=== PATIENT | male | born 1960 | race Caucasian/White ===

== ENCOUNTER 2018-11-22 15:36 | Outpatient (REF) | payer MEDICAID, SELFPAY ==
[2018-11-22 22:46] LABS: Abs Immature Grans 0.03 k/cumm (0.0-0.09); Absolute Basophil Count 0.03 k/cumm (0.0-0.2); Absolute Eosinophil Count 0.18 k/cumm (0.0-0.7); Absolute Lymphocyte Count 2.21 k/cumm (1.2-3.4); Absolute Neutrophil Count 6.08 k/cumm (1.2-6.7); Basophils % 0.3; Eosinophils % 1.9; HCT 46.8 % (40.0-50.0); HGB 15.9 g/dL (13.5-17.5); Immature Grans % 0.3; Lymphocytes % 23.7; Mean Corpuscular Hemoglobin 31.1 pg (27.0-33.0); Mean Corpuscular Volume 91.4 fL (80-95); Mean Platelet Volume 11.6 fL (8.0-11.0); Monocytes % 8.6; Neutrophils % 65.2; Platelet Count 175 x1000/uL (130-400); RBC 5.12 m/cumm (4.50-6.00); RBC Distribution Width 12.4 % (11.8-14.1); White Blood Cell Count 9.33 k/cumm (4.4-10.8)
[2018-11-23 00:03] LABS: ALT 89 U/L (12-78); AST 31 U/L (15-37); Albumin 3.9 g/dL (3.4-5.0); Alkaline Phosphatase 171 U/L (46-116); Anion Gap 10.1 mmol/L (3-11); BUN 22 mg/dL (7-18); Bilirubin, Total 0.4 mg/dL (0.2-1.0); CO2 27.9 mmol/L (21.0-32.0); CREATININE 1.39 mg/dL (0.70-1.30); Calcium 9.5 mg/dL (8.5-10.1); Chloride 103 mmol/L (98-107); Estimated GFR 52.12 (mL/min/1.73m2); Glucose 102 mg/dL (70-100); Potassium 4.5 mmol/L (3.5-5.1); Sodium 141 mmol/L (136-145); TSH (W/Ref FT4) 1.54 uIU/mL (0.358-3.74); Total Protein 7.1 g/dL (6.4-8.2)
== END 2018-11-22 15:56 ==
LOC: NCHCN 15:36
PROVIDERS: PCP Nurse Practitioner Family; Visit Provider Family Medicine
DX: R53.83 Other fatigue (principal); I25.10 Atherosclerotic heart disease of native coronary artery without angina pectoris
CPT/HCPCS: 80053; 84443; 85025

== ENCOUNTER 2019-01-05 21:13 | Outpatient (REF) | payer MEDICAID, SELFPAY ==
[2019-01-05 22:27] LABS: ALT 82 U/L (12-78); AST 35 U/L (15-37); Albumin 3.7 g/dL (3.4-5.0); Alkaline Phosphatase 156 U/L (46-116); Bilirubin, Direct 0.15 mg/dL (0.00-0.20); Bilirubin, Total 0.5 mg/dL (0.2-1.0); Total Protein 6.8 g/dL (6.4-8.2)
== END 2019-01-05 21:33 ==
LOC: NCHCN 21:13
PROVIDERS: PCP Nurse Practitioner Family; Visit Provider Family Medicine
DX: I10 Essential (primary) hypertension (principal)
CPT/HCPCS: 80076

== ENCOUNTER 2019-02-22 16:46 | Outpatient (REF) | payer MEDICAID, SELFPAY ==
[2019-02-22 20:59] LABS: ALT 110 U/L (12-78); AST 32 U/L (15-37); Albumin 3.9 g/dL (3.4-5.0); Alkaline Phosphatase 161 U/L (46-116); Bilirubin, Total 0.5 mg/dL (0.2-1.0)
[2019-02-22 21:19] LABS: Bilirubin, Direct 0.14 mg/dL (0.00-0.20)
== END 2019-02-22 17:06 ==
LOC: NCHCN 16:46
PROVIDERS: PCP Nurse Practitioner Family; Visit Provider Registered Nurse
DX: G89.29 Other chronic pain (principal); M48.061 Spinal stenosis, lumbar region without neurogenic claudication
CPT/HCPCS: 80076

== ENCOUNTER 2019-04-13 09:25 | Outpatient (REF) | payer MEDICAID, SELFPAY ==
[2019-04-13 22:17] LABS: ALT 82 U/L (12-78); AST 29 U/L (15-37); Albumin 4.1 g/dL (3.4-5.0); Alkaline Phosphatase 127 U/L (46-116); Bilirubin, Direct 0.13 mg/dL (0.00-0.20); Bilirubin, Total 0.5 mg/dL (0.2-1.0); Total Protein 7.5 g/dL (6.4-8.2)
== END 2019-04-13 09:45 ==
LOC: NCHCN 09:25
PROVIDERS: PCP Nurse Practitioner Family; Visit Provider Registered Nurse
DX: I25.10 Atherosclerotic heart disease of native coronary artery without angina pectoris (principal)
CPT/HCPCS: 80076

== ENCOUNTER 2019-04-26 10:17 | Outpatient (REF) | payer MEDICAID, SELFPAY ==
[2019-04-26 22:17] LABS: Alkaline Phosphatase 118 U/L (46-116); GGT 66 U/L (15-85)
== END 2019-04-26 10:37 ==
LOC: NCHCN 10:17
PROVIDERS: PCP Nurse Practitioner Family; Visit Provider Registered Nurse
DX: R74.0 Nonspecific elevation of levels of transaminase and lactic acid dehydrogenase [LDH] (principal)
CPT/HCPCS: 82977; 84075

== ENCOUNTER 2019-05-17 07:57 | Outpatient (REF) | payer MEDICAID, SELFPAY ==
[2019-05-19 11:22] LABS: PSA, Screening 0.6 ng/ml (0-4.5)
== END 2019-05-17 08:17 ==
LOC: NCHCN 07:57
PROVIDERS: PCP Nurse Practitioner Family; Visit Provider Registered Nurse
DX: Z12.5 Encounter for screening for malignant neoplasm of prostate (principal)
CPT/HCPCS: 84153

== ENCOUNTER 2019-12-21 22:23 | Outpatient (REF) | payer MEDICAID, SELFPAY ==
[2019-12-21 22:53] LABS: Ferritin 258 ng/mL (26-388)
== END 2019-12-21 22:43 ==
LOC: NCHCN 22:23
PROVIDERS: PCP Nurse Practitioner Family; Visit Provider Nurse Practitioner
DX: M25.50 Pain in unspecified joint (principal)
CPT/HCPCS: 82728

== ENCOUNTER 2020-11-21 19:09 | Outpatient (REF) | payer MEDICAID, SELFPAY ==
[2020-11-21 22:05] LABS: Abs Immature Grans 0.02 10^3/uL (0.0-0.06); Absolute Basophil Count 0.06 10^3/uL (0.0-0.2); Absolute Eosinophil Count 0.27 10^3/uL (0.0-0.7); Absolute Lymphocyte Count 2.04 10^3/uL (1.2-3.4); Absolute Monocyte Count 0.79 10^3/uL (0.1-0.8); Absolute Neutrophil Count 4.29 10^3/uL (1.2-6.7); Basophils % 0.8; Eosinophils % 3.6; HCT 45.4 % (40.0-50.0); HGB 15.3 g/dL (13.5-17.5); Immature Grans % 0.3; Lymphocytes % 27.3; MCH 30.5 pg (27.0-33.0); MCHC 33.7 % (32.0-36.0); MCV 90.6 fL (80-95); MPV 10.7 fL (8.0-11.0); Monocytes % 10.6; Neutrophils % 57.4; Nucleated RBC 0 %; Platelet Count 268 10^3/uL (130-400); RBC 5.01 10^6/uL (4.36-5.78); RDW 11.8 % (11.8-14.1); RDW-SD 38.9 fL; WBC 7.47 10^3/uL (4.4-10.8)
[2020-11-21 22:37] LABS: ALT 80 U/L (16-63); AST 28 U/L (15-37); Albumin 3.9 g/dL (3.4-5.0); Alkaline Phosphatase 149 U/L (46-116); Anion Gap 6.5 mmol/L (3-11); BUN 18 mg/dL (7-18); Bilirubin, Total 0.4 mg/dL (0.2-1.0); CO2 28.5 mmol/L (21.0-32.0); Calcium 8.8 mg/dL (8.5-10.1); Chloride 104 mmol/L (98-107); Estimated GFR 55.94 (mL/min/1.73m2); Glucose 101 mg/dL (74-106); Potassium 4.6 mmol/L (3.5-5.1); Sodium 139 mmol/L (136-145); Total Protein 7.5 g/dL (6.4-8.2)
[2020-11-21 23:10] LABS: Bacteria Negative HPF (Negative); C & S Indicated? No; Casts Negative LPF (Negative); Crystals Negative HPF (Negative); Epithelial Cells Rare HPF (Negative); Mucus Negative (Negative); Other Cells Negative (Negative); RBC 0-2 HPF (0-2); WBC 0-2 HPF (0-5)
== END 2020-11-21 19:29 ==
LOC: NCHCN 19:09
PROVIDERS: PCP Nurse Practitioner Family; Visit Provider Registered Nurse
DX: R10.9 Unspecified abdominal pain (principal); K59.00 Constipation, unspecified
CPT/HCPCS: 80053; 81015; 85025

== ENCOUNTER 2021-03-29 09:21 | Outpatient (REF) | payer MEDICAID, SELFPAY ==
[2021-03-29 14:37] LABS: ALT 76 U/L (16-63); AST 33 U/L (15-37)
[2021-03-29 21:34] LABS: PSA, Screening 2.1 ng/mL (0.0-4.5)
== END 2021-03-29 09:22 | disposition home or self-care (01) ==
LOC: NCHCN 09:21
PROVIDERS: PCP Nurse Practitioner Family; Visit Provider Registered Nurse
DX: R74.01 Elevation of levels of liver transaminase levels (principal); I71.4 Abdominal aortic aneurysm, without rupture; Z12.5 Encounter for screening for malignant neoplasm of prostate
CPT/HCPCS: 84153; 84450; 84460

== ENCOUNTER 2022-02-14 14:35 | Outpatient (REF) | payer MEDICAID, SELFPAY ==
[2022-02-14 16:27] LABS: ALT 51 U/L (16-63); AST 27 U/L (15-37); Albumin 3.8 g/dL (3.4-5.0); Alkaline Phosphatase 186 U/L (46-116); Anion Gap 10.9 mmol/L (3-11); BUN 16 mg/dL (7-18); Bilirubin, Total 0.7 mg/dL (0.2-1.0); CO2 23.1 mmol/L (21.0-32.0); CREATININE 1.3 mg/dL (0.70-1.30); Calcium 8.8 mg/dL (8.5-10.1); Chloride 105 mmol/L (98-107); Estimated GFR 55.75 (mL/min/1.73m2); Glucose 206 mg/dL (74-106); Potassium 4.7 mmol/L (3.5-5.1); Sodium 139 mmol/L (136-145); Total Protein 6.9 g/dL (6.4-8.2)
== END 2022-02-14 14:36 | disposition home or self-care (01) ==
LOC: NCHCN 14:35
PROVIDERS: PCP Nurse Practitioner Family; Visit Provider Registered Nurse
DX: I10 Essential (primary) hypertension (principal); R94.5 Abnormal results of liver function studies
CPT/HCPCS: 80053

== ENCOUNTER 2022-07-30 21:07 | Outpatient (REF) | payer MEDICAID, SELFPAY ==
[2022-07-30 21:09] LABS: Hemoglobin A1C 7.1 % (<5.7)
[2022-07-30 21:14] LABS: Anion Gap 9.3 mmol/L (3-11); BUN 30 mg/dL (7-18); CO2 24.7 mmol/L (21.0-32.0); CREATININE 1.5 mg/dL (0.70-1.30); Calcium 8.8 mg/dL (8.5-10.1); Chloride 102 mmol/L (98-107); Estimated GFR 51.99 (mL/min/1.73m2); Glucose 113 mg/dL (74-106); Potassium 4.5 mmol/L (3.5-5.1); Sodium 136 mmol/L (136-145)
[2022-07-31 18:21] LABS: Albumin ug/mg Crea 7 (<30); Albumin, Ur 1.9 mg/dL (See Note); Creatinine, Ur 267.4 mg/dL (See Note)
== END 2022-07-30 21:08 | disposition home or self-care (01) ==
LOC: NCHCN 21:07
PROVIDERS: PCP Nurse Practitioner Family; Visit Provider Registered Nurse
DX: I10 Essential (primary) hypertension (principal); E11.9 Type 2 diabetes mellitus without complications; N18.30 Chronic kidney disease, stage 3 unspecified
CPT/HCPCS: 80048; 82043; 82570; 83036

== ENCOUNTER 2023-04-08 16:08 | Outpatient (REF) | payer MEDICAID, SELFPAY ==
[2023-04-08 21:11] LABS: Anion Gap 9.9 mmol/L (3-11); BUN 28 mg/dL (7-18); CO2 24.1 mmol/L (21.0-32.0); CREATININE 1.3 mg/dL (0.70-1.30); Calcium 9.5 mg/dL (8.5-10.1); Chloride 105 mmol/L (98-107); Estimated GFR 61.35 (mL/min/1.73m2); Glucose 146 mg/dL (74-106); Potassium 4.3 mmol/L (3.5-5.1); Sodium 139 mmol/L (136-145)
== END 2023-04-08 16:09 | disposition home or self-care (01) ==
LOC: NCHCN 16:08
PROVIDERS: PCP Nurse Practitioner Family; Visit Provider Registered Nurse
DX: N18.30 Chronic kidney disease, stage 3 unspecified (principal)
CPT/HCPCS: 80048

== ENCOUNTER 2023-07-02 09:53 | Outpatient (REF) | payer MEDICAID, SELFPAY ==
[2023-07-02 15:14] LABS: COMMENT (LAB VIEW ONLY) 248.97 mg/dL; Microalb ug/mg Crea 8.5 ug/mg Cr
== END 2023-07-02 09:54 | disposition home or self-care (01) ==
LOC: NCHCN 09:53
PROVIDERS: PCP Nurse Practitioner Family; Visit Provider Registered Nurse
DX: E11.9 Type 2 diabetes mellitus without complications (principal)
CPT/HCPCS: 82043; 82570

== ENCOUNTER 2024-01-14 11:57 | Outpatient (REF) | payer MEDICARE, MEDICAID, SELFPAY ==
[2024-01-14 14:34] LABS: ALT 67 U/L (16-63); AST 28 U/L (15-37); Albumin 3.8 g/dL (3.4-5.0); Alkaline Phosphatase 165 U/L (46-116); Anion Gap 6.5 mmol/L (3-11); BUN 21 mg/dL (7-18); Bilirubin, Total 0.6 mg/dL (0.2-1.0); CO2 26.5 mmol/L (21.0-32.0); CREATININE 1.4 mg/dL (0.70-1.30); Calculated LDL 63 mg/dL (<100); Chloride 105 mmol/L (98-107); Cholesterol 121 mg/dL (<200); Estimated GFR 55.78 (mL/min/1.73m2); Glucose 221 mg/dL (74-106); HDL Cholesterol 39 mg/dL (40-60); Potassium 4.9 mmol/L (3.5-5.1); Sodium 138 mmol/L (136-145); Total Protein 6.9 g/dL (6.4-8.2); Triglyceride 97 mg/dL (<150)
[2024-01-14 14:40] LABS: Hemoglobin A1C 7.4 % (<5.7)
== END 2024-01-14 11:58 | disposition home or self-care (01) ==
LOC: NCHCN 11:57
PROVIDERS: PCP Nurse Practitioner Family; Referring Provider Nurse Practitioner Family; Visit Provider Nurse Practitioner Family
DX: I10 Essential (primary) hypertension (principal); E11.9 Type 2 diabetes mellitus without complications; E78.5 Hyperlipidemia, unspecified
CPT/HCPCS: 80053; 80061; 83036

== ENCOUNTER 2024-06-27 22:18 | Outpatient (REF) | payer MEDICARE, MEDICAID, SELFPAY ==
[2024-06-27 16:21] LABS: COMMENT (LAB VIEW ONLY) 67.53 mg/dL
== END 2024-06-27 22:19 | disposition home or self-care (01) ==
LOC: NCHCN 22:18
PROVIDERS: PCP Nurse Practitioner Family; Visit Provider Nurse Practitioner Family
DX: E11.9 Type 2 diabetes mellitus without complications (principal)
CPT/HCPCS: 82043; 82570

== ENCOUNTER 2024-12-06 13:22 | Outpatient (REF) | payer MEDICARE, MEDICAID, SELFPAY ==
[2024-12-06 16:41] LABS: Hemoglobin A1C 7.3 % (<5.7)
[2024-12-06 16:59] LABS: ALT 47 U/L (16-63); AST 32 U/L (15-37); Alkaline Phosphatase 159 U/L (46-116); Anion Gap 6.4 mmol/L (3-11); BUN 30 mg/dL (7-18); Bilirubin, Total 0.54 mg/dL (0.2-1.0); CO2 28.6 mmol/L (21.0-32.0); CREATININE 1.5 mg/dL (0.70-1.30); Calcium 9.2 mg/dL (8.5-10.1); Calculated LDL 68 mg/dL (<100); Chloride 107 mmol/L (98-107); Cholesterol 124 mg/dL (<200); Estimated GFR 51.03 (mL/min/1.73m2); Glucose 147 mg/dL (74-106); HDL Cholesterol 46 mg/dL (40-60); Magnesium 2.2 mg/dL (1.8-2.4); Sodium 142 mmol/L (136-145); Total Protein 7.3 g/dL (6.4-8.2); Triglyceride 54 mg/dL (<150)
[2024-12-06 23:14] LABS: PSA, Screening 1.1 ng/mL (<=4.5)
== END 2024-12-06 13:23 | disposition home or self-care (01) ==
LOC: NCHCN 13:22
PROVIDERS: PCP Nurse Practitioner Family; Visit Provider Nurse Practitioner Family
DX: E11.9 Type 2 diabetes mellitus without complications (principal); Z12.5 Encounter for screening for malignant neoplasm of prostate
CPT/HCPCS: 80053; 80061; 84153; 83036; 83735

== ENCOUNTER 2025-05-29 19:22 | Outpatient (REF) | payer MEDICARE, MEDICAID, SELFPAY ==
[2025-05-29 16:41] LABS: PROTEIN 11.3 mg/dL; Prot/Crea Ur Ratio 0.10
[2025-05-30 04:03] LABS: COMMENT (LAB VIEW ONLY) 101.65 mg/dL; Microalb ug/mg Crea 10.9 ug/mg Cr
== END 2025-05-29 19:23 | disposition home or self-care (01) ==
LOC: NCHCN 19:22
PROVIDERS: PCP Nurse Practitioner Family; Visit Provider Nurse Practitioner Family
DX: E11.9 Type 2 diabetes mellitus without complications (principal)
CPT/HCPCS: 82043; 82565; 82570; 84156

== ENCOUNTER 2025-07-19 15:28 | Outpatient (REF) | payer MEDICARE, MEDICAID, SELFPAY ==
[2025-07-19 21:55] LABS: C & S Indicated? No; WBC 0-2 HPF (0-5)
== END 2025-07-19 15:29 | disposition home or self-care (01) ==
LOC: NCHCN 15:28
PROVIDERS: PCP Nurse Practitioner Family; Visit Provider Nurse Practitioner Family
DX: R35.0 Frequency of micturition (principal)
CPT/HCPCS: 81015

== ENCOUNTER 2025-08-22 09:24 | Outpatient (REF) | payer MEDICARE, MEDICAID, SELFPAY | END 2025-08-22 09:25 | disposition home or self-care (01) | LOC: NCHCN 09:24 | PROVIDERS: PCP Nurse Practitioner Family; Visit Provider Nurse Practitioner Family | DX: R30.0 Dysuria (principal) | CPT/HCPCS: 87077; 87086; 87186 ==